=== PATIENT | female | born 1985 ===

== ENCOUNTER 2018-07-10 09:16 | Outpatient (CLI) | payer OTHER | END 2018-07-10 09:17 | disposition home or self-care (01) | LOC: C.LAB 09:16 | DX: Z34.81 Encounter for supervision of other normal pregnancy, first trimester (principal) ==

== ENCOUNTER 2018-07-10 09:19 | Outpatient (CLI) | payer OTHER | END 2018-07-10 09:20 | disposition home or self-care (01) | LOC: C.LAB 09:19 | DX: Z34.92 Encounter for supervision of normal pregnancy, unspecified, second trimester (principal) ==

== ENCOUNTER → 2018-09-26 | Outpatient (CLI) | payer OTHER | LOC: C.LAB 12:26 | DX: Z34.00 Encounter for supervision of normal first pregnancy, unspecified trimester (principal) ==